=== PATIENT | male | born 1960 | race Caucasian/White ===

== ENCOUNTER → 2017-10-03 | Day surgery (SDC) | payer BC ==
[~2017-10-03] MED LIST: ALBUTEROL SULF8.5 GM INH; BELLADONNA/OPIUM 60 MG SUPP PR ONE; CEFTRIAXONE SOD 1 GM VIAL ONE; CIPRO500 MG PO; DEXAMETHASONE SOD PHOS INJ 4 MG/ML VIAL ONE; DITROPAN XL5 MG PO; FENTANYL CITRATE/PF 100MCG/2 ML INJ ONE; IOPAMIDOL 610MG/1ML 300 MG/ML VIAL IV ONE; LIDOCAINE HCL 2% LOCAL INJ 5 ML SDV VIAL INJ ONE; LOSARTAN-HCTZ1 EAC1 PO; MIDAZOLAM HCL 2 MG/2 ML VIAL ONE; NEXIUM20 MG PO; ONDANSETRON HCL INJ 2 MG/ML VIAL ONE; OXYBUTYNIN CHLOR5 MG PO; PANTOPRAZOLE SO40 MG PO; PHENAZOPYRIDIN100 MG PO; PROPOFOL IV EMULSION 10 MG/ML 20 ML VIAL ONE; SEVOFLURANE INHAL SOLN 250 ML PEN BTL ONE; TRAMADOL; TRAMADOL HCL 50 MG TAB ONE; TYLENOL WITH C1 EACH PO; VENTOLIN HFA18 GM INH; ZITHROMAX250 MG PO
[2017-10-03] MEDS: GENTAMICIN 80MG/NS 100 ML 200 ML IV ONE (14:32)
[2017-10-03 16:08] LABS: BASOPHILS % 0.4 % (0.0-1.0); EOSINOPHILS # (AUTO) 0.2 (0.0-0.4); EOSINOPHILS % 2.4 % (0.0-6.0); HEMATOCRIT 40.5 % (38.2-49.6); HEMOGLOBIN 13.6 g/dL (14.0-18.0); LYMPHOCYTES # (AUTO) 1.7 (1.0-3.2); LYMPHOCYTES % 25.1 % (18.0-39.1); MEAN CORPUSCULAR HEMOGLOBIN 28.4 pg (28-32); MEAN CORPUSCULAR HGB CONC 33.6 g/dL (31-35); MEAN CORPUSCULAR VOLUME 84.6 fL (81-99); MONOCYTES # (AUTO) 0.3 (0.2-0.8); MONOCYTES % 5.1 % (4.4-11.3); NEUTROPHILS # (AUTO) 4.5 (2.1-6.9); NEUTROPHILS % 66.7 % (38.7-80.0); PLATELET COUNT 276 x10e3/uL (140-360); RED BLOOD COUNT 4.79 x10e6/uL (4.3-5.7); RED CELL DISTRIBUTION WIDTH 13.2 % (11.7-14.4)
[2017-10-03 16:18] LABS: ALANINE AMINOTRANSFERASE 56 IU/L (0-55); ALBUMIN 3.8 g/dL (3.5-5.0); ALBUMIN/GLOBULIN RATIO 1.2 (0.8-2.0); ALKALINE PHOSPHATASE 84 IU/L (40-150); ANION GAP 16.6 mmol/L (8-16); BLOOD UREA NITROGEN 16 mg/dL (7-26); BUN/CREATININE RATIO 14 (6-25); CALCIUM 9.4 mg/dL (8.4-10.2); CARBON DIOXIDE 27 mmol/L (22-29); CHLORIDE 98 mmol/L (98-107); CREATININE, SERUM 1.15 mg/dL (0.72-1.25); EST GLOMERULAR FILTRATION RATE > 60 ML/MIN (60-); GLUCOSE 89 mg/dL (74-118); POTASSIUM 3.6 mmol/L (3.5-5.1); SODIUM 138 mmol/L (136-145)
--- NOTE | 2017-11-19 23:20 | Operative Report ---
DATE OF PROCEDURE: October 03, 2017 PREOPERATIVE DIAGNOSES 1. Bladder cancer. 2. Gross hematuria. POSTOPERATIVE DIAGNOSES 1. Bladder cancer. 2. Gross hematuria. OPERATIONS PERFORMED 1. Cystourethroscopy with bilateral ureteral catheterization and retrograde ureteropyelography (separate procedure performed for the gross hematuria). 2. Interpretation of retrograde ureteropyelography. 3. Supervision of fluoroscopy. No radiologist present. 4. Cystourethroscopy with transurethral resection of large bladder tumor from the posterior wall of the bladder. ANESTHESIA: General. COMPLICATIONS: None. CLINICAL SUMMARY: Theo Mohr is a 57-year-old man who had bladder cancer. He underwent a full course of intravesical BCG. Followed by this, he is brought to the operating room to evaluate and manage any residual or recurrent cancer. He is aware of the risks of bleeding, infection, injury to adjacent structures, need for additional procedures, and elected to proceed. OPERATIVE PROCEDURE IN DETAIL: Informed consent was verified. Theo Mohr was properly identified, taken to the operating room, and placed on the cystoscopy table in the supine position. Anesthesia was uneventfully begun. The patient was then carefully and gently re-positioned in the dorsal lithotomy position with all pressure points well padded. His genitalia were prepared and draped in the usual fashion. The 22.5-Ukrainian cystoscope sheath with a visual obturator in place was atraumatically inserted in patient's urethra. It was guided down the unremarkable distal urethra, through the sphincteric region, through the prostate bed which was significant for early BPH and into the patient's bladder where panendoscopy revealed tumor in the posterior bladder wall. There were no other suspicious lesions. This tumor encompassed larger than 5 cm of space and surface area within the bladder wall. Both ureteral orifices were not involved with the tumor. The left ureteral orifice was open and displaced from previous resection. A ureteral catheter was used to cannulate both ureters and retrograde ureteropyelograms were performed. Interpretation of retrograde ureteropyelography: Contrast was instilled in retrograde fashion bilaterally. There were no tumors, no stones, and no diverticula. Unobstructed drainage was observed fluoroscopically. There were no suspicious lesions in the upper urinary tracts. We utilized cold cup biopsy forceps to ensure we got very good and deep biopsies of the recurrent bladder tumors. This was a patch of tumors in the posterior bladder wall and they were not papillary. Once we obtained ample specimen, we then utilized the Bugbee electrode to fully vaporize as well as fulgurate the entire surface area of the tumor as well as a margin of at least a centimeter circumferentially. At the end of the procedure, no visible tumor remained. The patient's bladder was drained after evacuation of all chips and pieces of tumor. Belladonna and opium suppository was placed. Bimanual examination did not reveal any fixation nor any palpable mass. Patient was then uneventfully reversed from anesthesia, taken to recovery room in stable condition. There were no complications of the procedure. The patient tolerated the procedure well. We will follow the patient up in the office, review the histopathology report, and come up with next step of management. Job#: [id number] CF cc:OSMEL CORTEZ MD
== END | disposition home or self-care (01) ==
LOC: OR 13:35
PROVIDERS: ATTEND Urology
DX: C67.4 Malignant neoplasm of posterior wall of bladder (principal); N20.0 Calculus of kidney; N40.0 Benign prostatic hyperplasia without lower urinary tract symptoms; I10 Essential (primary) hypertension; K21.9 Gastro-esophageal reflux disease without esophagitis
CPT/HCPCS: 36415; 52005; 52240; 74420; 80053; 85025; 88307; 93005; C1758; J0696; J1100; J1580; J2001; J2250; J2405; Q9967; 88305

== ENCOUNTER → 2017-12-22 | Outpatient (CLI) | payer BC ==
[~2017-12-22] MED LIST changes: -BELLADONNA/OPIUM 60 MG SUPP PR ONE; -CEFTRIAXONE SOD 1 GM VIAL ONE; -DEXAMETHASONE SOD PHOS INJ 4 MG/ML VIAL ONE; -FENTANYL CITRATE/PF 100MCG/2 ML INJ ONE; +IOPAMIDOL 370 MG/ML 200 ML INFUS..BTL INJ ONE; -IOPAMIDOL 610MG/1ML 300 MG/ML VIAL IV ONE; -LIDOCAINE HCL 2% LOCAL INJ 5 ML SDV VIAL INJ ONE; -MIDAZOLAM HCL 2 MG/2 ML VIAL ONE; -ONDANSETRON HCL INJ 2 MG/ML VIAL ONE; -PROPOFOL IV EMULSION 10 MG/ML 20 ML VIAL ONE; -SEVOFLURANE INHAL SOLN 250 ML PEN BTL ONE; +SODIUM CHLORIDE 0.9% 50ML 50 ML ONE; -TRAMADOL HCL 50 MG TAB ONE
[2017-12-22 13:28] LABS: BLOOD UREA NITROGEN 18 mg/dL (7-26); BUN/CREATININE RATIO 17 (6-25); CREATININE, SERUM 1.03 mg/dL (0.72-1.25); EST GLOMERULAR FILTRATION RATE > 60 ML/MIN (60-)
--- NOTE | 2017-12-22 14:39 | Diagnostic Imaging Report ---
PROCEDURE: Frontal and lateral views of the chest. COMPARISON: Chest x-ray 02/04/2017. INDICATIONS: PROSTATE CANCER. FINDINGS: Lines/tubes: None. Lungs: The lungs are well inflated. Right basilar atelectasis. There is no evidence of pneumonia or pulmonary edema. Pleura: There is no pleural effusion or pneumothorax. Heart and mediastinum: The heart and the mediastinum are normal. Bones: No acute bony abnormality. IMPRESSION: No acute cardiopulmonary disease. Dictated by: Marco Antonio Glover M.D. on 12/22/2017 at 14:42 Electronically approved by: Marco Antonio Glover M.D. on 12/22/2017 at 14:42
--- NOTE | 2017-12-22 16:23 | Diagnostic Imaging Report ---
PROCEDURE: CT ABDOMEN AND PELVIS WITH CONTRAST TECHNIQUE: The abdomen and pelvis were scanned utilizing a multidetector helical scanner from the diaphragm to the lesser trochanter after the IV administration of 100 cc of Isovue 370 and the oral administration of water. Coronal and sagittal multiplanar reformations were obtained. Total DLP: 785.70 mGy-cm COMPARISON: CT abdomen pelvis 05/13/2017. INDICATIONS: BLADDER CANCER FINDINGS: LOWER THORAX: Normal. HEPATOBILIARY: Diffuse hepatic steatosis. No focal hepatic lesions. No biliary ductal dilatation. SPLEEN: Mild splenomegaly measuring 14.5 cm in AP dimension. (Previously 14.0 cm) PANCREAS: No focal masses or ductal dilatation. ADRENALS: No adrenal nodules. KIDNEYS/URETERS: Right kidney: No hydronephrosis. A 0.7 cm and 0.6 cm cyst in the right kidney. A 0.3 cm nonobstructing stone in the interpolar region of the right kidney. Left kidney: Previous left double-J ureteral stent has been removed. Previous inflammatory changes surround the left renal pelvis and calyces extending down the left ureter had nearly resolved. PELVIC ORGANS/BLADDER: Previous bladder mass along the posterior superior aspect of the bladder involving the left UVJ as regressed. However, there is now anterior or superior extension of the tumor. The mass now measures a 5.9 cm in AP dimension (series 300 image 77) x 2.9 cm craniocaudal x 4.9 cm transverse (series 2 image 76). Majority of the tumor appears to be extra serosal. PERITONEUM / RETROPERITONEUM: No free air or fluid. LYMPH NODES: Previous prominent lymph nodes remain stable. 0.9 cm right inguinal (image 88) 0.9 cm left inguinal (image 93) 0.6 cm left external iliac (image 67) 0.9 cm left para-aortic (image 51). New left external iliac lymph node measuring 1.4 x 2.8 cm (image 71). VESSELS: Unremarkable. GI TRACT: No distention or wall thickening. BONES AND SOFT TISSUES: Mild multilevel degenerative changes in the thoracolumbar spine. Mild disc space narrowing at L4-5 with posterior disc osteophyte. Moderate to severe disc space narrowing at L5-S1. Bilateral L5 pars defect. IMPRESSION: 1. Previous bladder mass along the left posterior superior aspect of the bladder that was predominantly intraluminal with areas that were transmural have nearly resolved. However, this has progressed along the superior aspect of the bladder now measuring 5.9 x 2.9 x 4.9 cm. 2. New large left external iliac lymph node. 3. 0.3 cm right renal stone. 4. Diffuse hepatic steatosis and splenomegaly. Dictated by: Marco Antonio Glover M.D. on 12/22/2017 at 16:26 Electronically approved by: Marco Antonio Glover M.D. on 12/22/2017 at 16:26
--- NOTE | 2017-12-22 19:15 | Diagnostic Imaging Report ---
Bone Scan, delayed phase INDICATION: 57 M with diagnosis of aggressive bladder cancer in 2014 COMPARISON: CT abdo/pelvis 12/12/2014; no recent cross-sectional imaging REPORT: Approximately 3 hours following intravenous administration of 19 mCi of Tc-99m MDP, delayed total body images in the anterior and posterior projections and selected spot images were obtained. Mild degenerative changes noted in the lower lumbar spine, shoulders, hands and knees in a relatively symmetric pattern. Otherwise, distribution of tracer activity is unremarkable throughout the skeletal system. No abnormal accumulation of tracer is seen in the soft tissues or urinary tract. IMPRESSION: No scan evidence of metastatic bone disease. Signed by: Dr. Ibeth Hogue M.D. on 12/22/2017 7:11 PM
== END ==
LOC: NM 11:45
PROVIDERS: ATTEND Urology
DX: C67.2 Malignant neoplasm of lateral wall of bladder (principal); C67.4 Malignant neoplasm of posterior wall of bladder
CPT/HCPCS: 36415; 71046; 74177; 78306; 82565; 84520; A9503; Q9967

== ENCOUNTER 2018-01-16 08:41 | Inpatient (IN) | payer BC ==
[2018-01-14 16:59] LABS: BASOPHILS % 0.4 % (0.0-1.0); EOSINOPHILS # (AUTO) 0.1 (0.0-0.4); EOSINOPHILS % 1.6 % (0.0-6.0); HEMATOCRIT 39.8 % (38.2-49.6); HEMOGLOBIN 13.4 g/dL (14.0-18.0); LYMPHOCYTES # (AUTO) 1.9 (1.0-3.2); LYMPHOCYTES % 23.4 % (18.0-39.1); MEAN CORPUSCULAR HEMOGLOBIN 27.5 pg (28-32); MEAN CORPUSCULAR HGB CONC 33.7 g/dL (31-35); MEAN CORPUSCULAR VOLUME 81.7 fL (81-99); MONOCYTES # (AUTO) 0.4 (0.2-0.8); NEUTROPHILS # (AUTO) 5.5 (2.1-6.9); NEUTROPHILS % 69.2 % (38.7-80.0); PLATELET COUNT 300 x10e3/uL (140-360); RED BLOOD COUNT 4.87 x10e6/uL (4.3-5.7); RED CELL DISTRIBUTION WIDTH 13.1 % (11.7-14.4)
[2018-01-14 17:15] LABS: ALANINE AMINOTRANSFERASE 35 IU/L (0-55); ALBUMIN 3.9 g/dL (3.5-5.0); ALBUMIN/GLOBULIN RATIO 1.1 (0.8-2.0); ALKALINE PHOSPHATASE 94 IU/L (40-150); ANION GAP 15.9 mmol/L (8-16); BLOOD UREA NITROGEN 18 mg/dL (7-26); BUN/CREATININE RATIO 17 (6-25); CALCIUM 9.7 mg/dL (8.4-10.2); CARBON DIOXIDE 24 mmol/L (22-29); CHLORIDE 107 mmol/L (98-107); CREATININE, SERUM 1.03 mg/dL (0.72-1.25); EST GLOMERULAR FILTRATION RATE > 60 ML/MIN (60-); GLUCOSE 93 mg/dL (74-118); POTASSIUM 3.9 mmol/L (3.5-5.1); SODIUM 143 mmol/L (136-145)
[~2018-01-16] VITALS: Ht 170.2 cm; Wt 103.4 kg
[~2018-01-16 08:41] MED LIST changes: -IOPAMIDOL 370 MG/ML 200 ML INFUS..BTL INJ ONE; -SODIUM CHLORIDE 0.9% 50ML 50 ML ONE
[2018-01-16] MEDS ORDERED: CEFTRIAXONE SOD 1 GM VIAL ONE (09:06)
[2018-01-16] MEDS ORDERED: GENTAMICIN 80MG/NS 100 ML 200 ML IV ONE (09:06)
[2018-01-16] MEDS ORDERED: IOPAMIDOL 610MG/1ML 300 MG/ML VIAL IV ONE (09:19)
[2018-01-16] MEDS ORDERED: BELLADONNA/OPIUM 30 MG SUPP RC ONE (09:19)
[2018-01-16] MEDS ORDERED: FENTANYL CITRATE/PF 100MCG/2 ML INJ ONE ×3 (11:39→16:57)
[2018-01-16] MEDS ORDERED: ACETAMINOPHEN 1000 MG/100 ML 100 ML IV ONE (11:44)
[2018-01-16] MEDS ORDERED: ONDANSETRON HCL INJ 2 MG/ML VIAL IV PRN (11:45)
[2018-01-16] MEDS ORDERED: BELLADONNA/OPIUM 60 MG SUPP PR PRN (11:45)
[2018-01-16] MEDS ORDERED: DIPHENHYDRAMINE HCL INJ 50 MG/ML VIAL IM PRN (11:45)
[2018-01-16] MEDS ORDERED: NALOXONE HCL INJ 0.4 MG/ML AMP IV PRN (11:45)
[2018-01-16] MEDS ORDERED: ACETAMINOPHEN 1000 MG/100 ML IV PRN (11:45)
[2018-01-16] MEDS: HYDROMORPHONE 0.2MG/ML-SOD CHL 30ML PCA SYRINGE IV PRN ×3 (12:35→22:24)
[2018-01-16] MEDS ORDERED: HYDROMORPHONE 1MG/1ML INJ ONE (12:39)
[2018-01-16] MEDS ORDERED: BELLADONNA/OPIUM 30 MG SUPP RC PRN (13:00)
[2018-01-16 13:09] VITALS: BP 167/80
[2018-01-16 13:50] VITALS: BP 167/80
[2018-01-16 13:57] VITALS: BP 167/80
[2018-01-16] MEDS: PHENAZOPYRIDINE HCL 100 MG TAB PO SCH ×2 (14:53→16:45)
[2018-01-16] MEDS: PIPER-TAZ 3.375 GM 50 ML IV SCH ×2 (14:53→21:59)
[2018-01-16] MEDS ORDERED: LIDOCAINE HCL 2% LOCAL INJ 5 ML SDV VIAL INJ ONE (15:10)
[2018-01-16] MEDS ORDERED: PROPOFOL IV EMULSION 10 MG/ML 20 ML VIAL ONE (15:10)
[2018-01-16] MEDS ORDERED: DEXAMETHASONE SOD PHOS INJ 4 MG/ML VIAL ONE (15:10)
[2018-01-16] MEDS ORDERED: SEVOFLURANE INHAL SOLN 250 ML PEN BTL ONE (15:10)
[2018-01-16] MEDS ORDERED: ONDANSETRON HCL INJ 2 MG/ML VIAL ONE (15:10)
[2018-01-16] MEDS: D5.45%NS/KCL 20MEQ 1,000 ML IV SCH ×2 (16:45→20:35)
[2018-01-16] MEDS: DOCUSATE SODIUM 100 MG CAP PO SCH (16:45)
[2018-01-16 16:51] VITALS: BP 137/72
[2018-01-16] MEDS ORDERED: MIDAZOLAM HCL 2 MG/2 ML VIAL ONE (16:57)
[2018-01-16 20:00] VITALS: BP 140/80
[2018-01-16] MEDS: HYDROCHLOROTHIAZIDE 25 MG TAB PO SCH (20:45)
[2018-01-16] MEDS ORDERED: NON-FORMULARY MEDICATION (Losartan/Hydrochlorothiazide (Losartan-Hctz 100-25 Mg Tab) 1 TAB PO SCH (21:00)
[2018-01-16] MEDS: LOSARTAN POTASSIUM 100 MG TAB PO SCH (21:05)
[2018-01-16] MEDS: TOLTERODINE TARTRATE 4 MG CAPCR PO SCH (21:06)
[2018-01-16 23:00] VITALS: BP 154/88
[2018-01-17 04:00] VITALS: BP 150/80
[2018-01-17] MEDS: D5.45%NS/KCL 20MEQ 1,000 ML IV SCH ×3 (04:00→20:44)
[2018-01-17] MEDS: PIPER-TAZ 3.375 GM 50 ML IV SCH ×3 (06:00→22:00)
[2018-01-17 08:31] LABS: BASOPHILS % 0.1 % (0.0-1.0); EOSINOPHILS % 0.3 % (0.0-6.0); HEMATOCRIT 36.5 % (38.2-49.6); LYMPHOCYTES # (AUTO) 1.5 (1.0-3.2); MEAN CORPUSCULAR HEMOGLOBIN 27.6 pg (28-32); MEAN CORPUSCULAR HGB CONC 32.9 g/dL (31-35); MEAN CORPUSCULAR VOLUME 83.9 fL (81-99); MONOCYTES # (AUTO) 0.5 (0.2-0.8); MONOCYTES % 4.5 % (4.4-11.3); NEUTROPHILS # (AUTO) 9.3 (2.1-6.9); NEUTROPHILS % 81.6 % (38.7-80.0); PLATELET COUNT 291 x10e3/uL (140-360); RED BLOOD COUNT 4.35 x10e6/uL (4.3-5.7); RED CELL DISTRIBUTION WIDTH 13.1 % (11.7-14.4)
[2018-01-17] MEDS: DOCUSATE SODIUM 100 MG CAP PO SCH ×2 (08:43→17:00)
[2018-01-17] MEDS: PHENAZOPYRIDINE HCL 100 MG TAB PO SCH ×3 (08:43→19:19)
[2018-01-17 08:59] LABS: ANION GAP 13.2 mmol/L (8-16); BLOOD UREA NITROGEN 15 mg/dL (7-26); BUN/CREATININE RATIO 15 (6-25); CARBON DIOXIDE 28 mmol/L (22-29); CHLORIDE 103 mmol/L (98-107); CREATININE, SERUM 0.99 mg/dL (0.72-1.25); EST GLOMERULAR FILTRATION RATE > 60 ML/MIN (60-); GLUCOSE 118 mg/dL (74-118); MAGNESIUM 1.9 MG/DL (1.3-2.1); POTASSIUM 4.2 mmol/L (3.5-5.1); SODIUM 140 mmol/L (136-145)
[2018-01-17 09:23] VITALS: BP 145/83
[2018-01-17 20:00] VITALS: BP 145/83
[2018-01-17 20:16] VITALS: BP 144/81
[2018-01-17] MEDS: LOSARTAN POTASSIUM 100 MG TAB PO SCH (21:00)
[2018-01-17] MEDS: TOLTERODINE TARTRATE 4 MG CAPCR PO SCH (21:00)
[2018-01-17] MEDS: HYDROCHLOROTHIAZIDE 25 MG TAB PO SCH (21:30)
[2018-01-18] VITALS: BP 165/82
[2018-01-18] MEDS: HYDROMORPHONE 0.2MG/ML-SOD CHL 30ML PCA SYRINGE IV PRN ×2 (00:21→08:42)
[2018-01-18] MEDS: D5.45%NS/KCL 20MEQ 1,000 ML IV SCH ×2 (03:49→12:28)
[2018-01-18 04:00] VITALS: BP 128/70
[2018-01-18 05:17] LABS: BASOPHILS % 0.4 % (0.0-1.0); EOSINOPHILS # (AUTO) 0.1 (0.0-0.4); EOSINOPHILS % 1.2 % (0.0-6.0); HEMATOCRIT 35.5 % (38.2-49.6); HEMOGLOBIN 11.8 g/dL (14.0-18.0); LYMPHOCYTES # (AUTO) 1.9 (1.0-3.2); LYMPHOCYTES % 22.3 % (18.0-39.1); MEAN CORPUSCULAR HEMOGLOBIN 27.7 pg (28-32); MEAN CORPUSCULAR HGB CONC 33.2 g/dL (31-35); MEAN CORPUSCULAR VOLUME 83.3 fL (81-99); MONOCYTES # (AUTO) 0.4 (0.2-0.8); MONOCYTES % 4.8 % (4.4-11.3); NEUTROPHILS % 70.9 % (38.7-80.0); PLATELET COUNT 238 x10e3/uL (140-360); RED BLOOD COUNT 4.26 x10e6/uL (4.3-5.7); RED CELL DISTRIBUTION WIDTH 13.1 % (11.7-14.4)
[2018-01-18] MEDS: PIPER-TAZ 3.375 GM 50 ML IV SCH ×2 (05:32→13:09)
[2018-01-18 05:39] LABS: ANION GAP 14.1 mmol/L (8-16); BLOOD UREA NITROGEN 12 mg/dL (7-26); BUN/CREATININE RATIO 12 (6-25); CALCIUM 8.9 mg/dL (8.4-10.2); CARBON DIOXIDE 28 mmol/L (22-29); CHLORIDE 102 mmol/L (98-107); EST GLOMERULAR FILTRATION RATE > 60 ML/MIN (60-); GLUCOSE 102 mg/dL (74-118); POTASSIUM 4.1 mmol/L (3.5-5.1); SODIUM 140 mmol/L (136-145)
[2018-01-18 08:15] VITALS: BP 145/72
[2018-01-18] MEDS: PHENAZOPYRIDINE HCL 100 MG TAB PO SCH ×2 (08:51→12:29)
[2018-01-18] MEDS: DOCUSATE SODIUM 100 MG CAP PO SCH (08:51)
[2018-01-18 08:52] VITALS: BP 137/74
[2018-01-18 08:53] VITALS: BP 145/72
--- NOTE | 2018-03-04 14:02 | Discharge Summary ---
CHIEF COMPLAINT: Bladder CA. FINAL DIAGNOSES 1. Bladder carcinoma. 2. Hematuria. 3. Elevated prostate specific antigen. DISPOSITION: Home. This is a 57-year-old male patient of Dr. Dumont, known history of hypertension, bladder CA, and kidney stones who was admitted for outpatient procedure by Dr. Dumont to undergo prostate biopsies as well as transurethral resection of bladder tumors, C and R and following the procedure, the patient was being admitted for observation and review noted with my review as Dr. Dumont requested my service for medical coverage. Following the procedure, patient was noted be in pain. Villasenor was noted be in place. There was no chest pain or shortness of breath. Noted the patient has suprapubic access. We will be addressing analgesic issues, be managing IV hydration, be monitoring the patient's BP. Following the procedure, the patient was back on the med/surg floor. He was on a regular diet. He was undergoing pain control. He was receiving Zosyn 3.375 IV q.8 on IV hydration. His daily medications were continuing. He was receiving some pain care with hydromorphone as well as belladonna. His labs were showing electrolytes to be stable. Kidney functions stable. Glucose 118. CBC; hemoglobin 12 with white cell count 11,000. Initially, he was on [employer] control for pain. Patient was continuing to be resting comfortably. Pain management was doing its job for the patient. Discussions have been made for home discharge. Lab studies remained stable. He was weaned off the [employer], and he was cleared for discharge on 01/18/2018 in stable condition. EKGs were showing normal study. With his discharge home, he will continue on his current diet. He has a Villasenor on board and he was able to demonstrate the proper technique for irrigating the Villasenor for issues such as blood clots and issues regarding decreased urine output. ACTIVITY LEVEL: As tolerated. FOLLOWUP CARE: The patient will be reporting back to Dr. Dumont's office as directed. Following up with his PCP within 7 to 10 days. He will be taking his tramadol 50 mg 1 tablet by mouth every 4 hours as needed for pain, also be on Bactrim DS 1 tablet by mouth twice a day and also continue on his losartan/hydrochlorothiazide 100/25 one tablet at bedtime. If he has any breakthrough pain, any concerns regarding his Villasenor, his urine being a question regarding color and clarity, be contacting Dr. Dumont. Dictated By: SOHAIL Walton Job#: [id number] DOUG
--- NOTE | 2018-03-19 01:37 | Operative Report ---
DATE OF PROCEDURE: January 16, 2018 PREOPERATIVE DIAGNOSES 1. Recurrent bladder cancer. 2. Elevated prostate specific antigen. 3. Gross hematuria. POSTOPERATIVE DIAGNOSES 1. Recurrent bladder cancer. 2. Elevated prostate specific antigen. 3. Gross hematuria. OPERATIONS PERFORMED 1. Transrectal ultrasonography interpretation (no radiologist present). 2. Interpretation of ultrasonographic guidance for needle biopsy of the prostate (no radiologist present). 3. Transrectal needle biopsies of the prostate (separate procedure performed for the elevated prostate specific antigen). 4. Cystourethroscopy with bilateral ureteral catheterization and retrograde ureteropyelography (separate procedure performed to evaluate the upper tracts in light of gross hematuria). 5. Interpretation of retrograde ureteropyelography. 6. Supervision of fluoroscopy. No radiologist present. 7. Cystourethroscopy with transurethral resection of large posterior wall bladder tumor. ANESTHESIA: General. COMPLICATION: None. CLINICAL SUMMARY: Theo Mohr is a 57-year-old man, who was diagnosed in the spring with bladder cancer. This was a high-grade cancer that was noninvasive. The cystoscope occurred due to an obstructing left ureteral stone. The patient went on to work in [facility] and did not maintain followup despite specific instructions to follow up for bladder cancer surveillance and management. Patient returned in the last year with gross hematuria, was evaluated and found to have recurrent cancer. He underwent transurethral resection followed by an induction course of BCG. This was challenging due to the fact that [place]. The patient was brought to the operating room to evaluate for any residual or recurrent tumors. He is aware of the risks of bleeding infection injury to adjacent structures need for additional procedures and elected to proceed. Due to the fact that PSA was elevated, prostate biopsies will be performed concomitantly. OPERATIVE PROCEDURE IN DETAIL: Informed consent was verified. Theo Mohr was properly identified taken to operating room, placed on cystoscopy table in supine position. Anesthesia was uneventfully begun. The patient was then carefully and gently repositioned in the dorsal lithotomy position with all pressure points well padded. Transrectal ultrasonography was performed. Interpretation of prostate ultrasound: Realtime ultrasonography was performed. The patient's prostate size was estimated at 26.8 mL. There were diffuse calcifications periurethrally in the transition zone. The capsule was smooth. There were suspicious hypoechoic lesions. It could be readily identified, but there was some heterogeneity of the posterior peripheral zone. Seminal vesicles were unremarkable. With ultrasonographic guidance, needle biopsy of the prostate were taken. Two biopsies each were taken at 6 locations. These were differentiated right versus left and base versus mid versus apex. The patient's genitalia were then prepared and draped in usual sterile fashion. A 22.5-Mongolian cystoscope sheath with visual obturator in place was atraumatically inserted in patient's urethra. It was guided down unremarkably the urethra past the prostate bed, was significant for early BPH and into the patient's bladder with panendoscopy revealed recurrent bladder tumor at the posterior bladder wall. These were highly suspicious for aggressive disease. An 8-Mongolian catheter was used to cannulate each ureter. Retrograde ureteropyelograms were performed. Interpretation of retrograde ureteropyelography: Contrast was instilled in retrograde fashion bilaterally. On the right-hand side, there were no tumors, there were no stones, there is no hydronephrosis. There was medial deviation of the right ureter. Unobstructed drainage was observed fluoroscopically. Left-hand side exhibited difficulty in opacifying the kidney. The left ureter was unremarkable for tumors, but it was dilated as one would expect with a sphincteric reflux. We did not opacify the kidney. The resectoscope sheath was inserted. A transurethral resection of the bladder tumor was carried on. We resected a large portion of bladder tumor, at least 7-8 cm in total of tumor diameter and resected the posterior bladder wall. It appeared from the resection that this tumor was probably invasive. This was not a curative resection. Hemostasis was obtained with pinpoint cautery. Once we evacuated all bladder chips, the resectoscope was withdrawn. Villasenor catheter was placed. The patient was uneventfully reversed from anesthesia, was taken to recovery in stable condition. There were no complications to procedure. He tolerated the procedure well. Plans will be to keep the patient as an inpatient, so we can manage his pain, as well as his catheter and of course, we will await the histopathology reports and then, will determine whether his followup should be there will be a resection if we have noninvasive disease versus a radical cystectomy and/or chemotherapy if we do have invasive disease. Job#: [id number]
== END 2018-01-18 15:05 | disposition home or self-care (01) | DRG 669 ==
LOC: OR 08:41 → PACU V 11:45 → MED/SURG 12:51
PROC: 0TBB8ZZ Excision of Bladder, Via Natural or Artificial Opening Endoscopic (ICD-10-PCS; 2018-01-16)
PROC: 0VB03ZX Excision of Prostate, Percutaneous Approach, Diagnostic (ICD-10-PCS; principal; 2018-01-16 10:00)
DX: C67.4 Malignant neoplasm of posterior wall of bladder (principal); N39.0 Urinary tract infection, site not specified; I10 Essential (primary) hypertension; D64.9 Anemia, unspecified; E66.9 Obesity, unspecified; Z68.35 Body mass index [BMI] 35.0-35.9, adult; R97.20 Elevated prostate specific antigen [PSA]; R31.0 Gross hematuria; Z87.442 Personal history of urinary calculi; D72.829 Elevated white blood cell count, unspecified; C61 Malignant neoplasm of prostate
CPT/HCPCS: 36415; 74420; 76872; 76942; 80048; 80053; 83735; 85025; 88305; 93005; J0696; J1100; J1170; J1580; J2001; J2250; J2405; J2543